=== PATIENT | female | born 1955 | race Caucasian/White ===

== ENCOUNTER 2017-01-01 14:59 | Emergency (ER) | payer OTHER ==
--- NOTE | ~2017-01-01 | CR210 ---
[facility] A Service of [facility] & [facility] RADIOLOGY TEXT RESULTS PATIENT: LC PHILIP LOCATION: [facility]FT[facility] : 59 UNIT #: [id number] AGE: [address]: Amber Ewing APRN SEX: F ORDER DR: [id number] [facility] [address] [place], [place] [address] [id number] E MR#: [id number] Acc #: [id number] NAME: LC PHILIP : 1955 SEX: F STUDY DATE/TIME: 01/01/2017 16:39 UNIT: CFTX ROOM: STUDY DESCRIPTION: CR Ribs Uni 2 View W PA Ch Lt Attending Physician: Amber Ewing A.P.R.N. Ordering Physician: [facility] Primary Care Physician: Angela Ewing M.D. MEDICAL IMAGING REPORT This report is preliminary unless electronic signature is present EXAM Left rib series 01/01/2017 HISTORY Contusion. Fall. Pain swelling in ankle foot left side rib pain began yesterday. Patient fell. AP radiograph of the chest presented with AP and oblique views of the left ribs. COMPARISON STUDIES Comparison to chest CT 05/15/2015. FINDINGS Subtle contour irregularity superolateral margin of the lateral left fifth rib seen on only 1 view and suspicious for nondisplaced left fifth rib fracture. There is a minimally-displaced left anterolateral seventh rib fracture. No other fractures are clearly seen. Visualized right ribs appear intact. Mild levoscoliosis lumbar spine centered at the L3 level. About 1 cm left lateral translocation L3 relative to L4. These changes felt secondary to moderate to severe degenerative changes in the lga-yi-wshin lumbar spine. Heart mildly enlarged. Lungs well inflated. Right lung clear. Patchy and linear densities at the left lung base probably atelectatic in nature. Left basilar pneumonia could be considered. Followup to resolution recommended. No definite pleural effusion and no pneumothorax. Surgical chain sutures at the right lung apex. The visualized bowel gas pattern is normal. Status post cholecystectomy. Dictated by... Rajan Connor M.D. THIS IS AN ELECTRONICALLY VERIFIED REPORT STS. [facility] A Service of [facility] & [facility] RADIOLOGY TEXT RESULTS PATIENT: LC PHILIP LOCATION: [facility] : 59 UNIT #: [id number] AGE: [address]: Amber Ewing APRN SEX: F ORDER DR: Rajan Connor M.D. at 01/02/2017 7:52 PM Kuldip TD: 01/01/2017 18:29 JOB #: [id number] MEDICAL IMAGING REPORT Page 1 of 1 COPY
--- NOTE | ~2017-01-01 | CR21 ---
[facility] A Service of [facility] & [facility] RADIOLOGY TEXT RESULTS PATIENT: LC PHILIP LOCATION: [facility] : 59 UNIT #: [id number] AGE: [address]: Amber Ewing APRN SEX: F ORDER DR: [id number] [facility] [address] [place], [place] [address] [id number] E MR#: [id number] Acc #: [id number] NAME: LC PHILIP : 1955 SEX: F STUDY DATE/TIME: 01/01/2017 16:38 UNIT: CFTX ROOM: STUDY DESCRIPTION: CR Ankle Min 3 Views Rt Attending Physician: Amber Ewing A.P.R.N. Ordering Physician: [facility] Primary Care Physician: Angela Ewing M.D. MEDICAL IMAGING REPORT This report is preliminary unless electronic signature is present EXAM Right ankle series 01/01/2017 HISTORY Pain swelling ankle and foot duration 2 days. FINDINGS Well corticated linear lucency through the inferior third of the medial malleolus. While there is overlying soft tissue swelling, I believe this lucency was present on prior foot series in March 2016 and may reflect sequelae of remote fracture with nonunion or accessory ossification center. Acute nondisplaced fracture felt less likely. Correlate with location of patient's pain and mechanism of injury. Remaining bony structures show no acute appearing abnormalities. There is a plantar calcaneal spur. Soft tissue swelling medial, lateral and anterior aspects of the ankle without soft tissue defect, subcutaneous air or radiodense foreign body. Dictated by... Rajan Connor M.D. THIS IS AN ELECTRONICALLY VERIFIED REPORT Rajan Connor M.D. at 01/02/2017 7:52 PM Kuldip TD: 01/01/2017 18:23 JOB #: [id number] MEDICAL IMAGING REPORT Page 1 of 1 COPY
--- NOTE | ~2017-01-01 | CR127 ---
[facility] A Service of [facility] RADIOLOGY TEXT RESULTS PATIENT: LC PHILIP LOCATION: [facility] : 59 UNIT #: [id number] AGE: [address]: Amber Ewing APRN SEX: F ORDER DR: [id number] [facility] [address] [place], [place] [address] [id number] E MR#: [id number] Acc #: [id number] NAME: LC PHILIP : 1955 SEX: F STUDY DATE/TIME: 01/01/2017 16:38 UNIT: CFTX ROOM: STUDY DESCRIPTION: CR Foot Complete Min 3 View Rt Attending Physician: Amber Ewing A.P.R.N. Ordering Physician: Ed James Gómez M.D. Primary Care Physician: Angela Ewing M.D. MEDICAL IMAGING REPORT This report is preliminary unless electronic signature is present EXAM Right foot series, 01/01/2017. HISTORY Pain and swelling in ankle and foot, 2 days duration. TECHNIQUE AP, lateral, and oblique radiographs of the right foot are presented. COMPARISON 03/18/2016 FINDINGS No acute-appearing traumatic fracture or malalignment. Degenerative changes in the interphalangeal joints. Stable appearance, orthopedic cerclage wire, medial aspect, distal phalanx, great toe, and stable appearance of orthopedic fixation wire, distal shaft and head, 5th metatarsal bone. No non-orthopedic radiodense foreign body. No soft tissue defect or subcutaneous air. Soft tissue swelling suggested, anterior aspect of the ankle and probably medial and lateral aspects of ankle, as well. Please associated ankle series for further assessment. Dictated by... Rajan Connor M.D. THIS IS AN ELECTRONICALLY VERIFIED REPORT Rajan Connor M.D. at 01/02/2017 7:52 PM MAHAMED/lauren TD: 01/01/2017 18:19 JOB #: [id number] [facility] A Service [facility] RADIOLOGY TEXT RESULTS PATIENT: LC PHILIP LOCATION: [facility] : 59 UNIT #: [id number] AGE: [address]: Amber Ewing APRN SEX: F ORDER DR: MEDICAL IMAGING REPORT Page 1 of 1 COPY
[~2017-01-01 14:59] MED LIST: ACID REDUCER 1150 MG PO; ALBUTEROL17 GM INH; ALBUTEROL20 ml INH; BENTYL20 MG PO; BREO ELLIPTA I1 EACH IH; DARVOCET-N 1001 TAB PO; HYDROCODON-ACE1 EAC7 PO; HYDROCODONE/APA1 T15 PO; LORTAB 5/500 TA1 TA1 PO; NEXIUM PO; SPIRIVA18 MCG INH; TROSPIUM CHLORI60 M1 PO; ZOFRANODT PO; ZOFRANODT SL; [UNRECOGNIZED DRUG - OTHER]; [UNRECOGNIZED DRUG - OTHER]; [UNRECOGNIZED DRUG - OTHER]; [UNRECOGNIZED DRUG - REMARK]
== END 2017-01-01 18:23 | disposition home or self-care (01) ==
LOC: CFTX 14:59 → CED 14:59 → CFTX 17:18
DX: S22.42XA Multiple fractures of ribs, left side, initial encounter for closed fracture (principal); M25.471 Effusion, right ankle; F41.9 Anxiety disorder, unspecified; K21.9 Gastro-esophageal reflux disease without esophagitis; J44.9 Chronic obstructive pulmonary disease, unspecified; F17.210 Nicotine dependence, cigarettes, uncomplicated; Z90.710 Acquired absence of both cervix and uterus; Z98.51 Tubal ligation status; Z88.0 Allergy status to penicillin; W01.0XXA Fall on same level from slipping, tripping and stumbling without subsequent striking against object, initial encounter; Y92.009 Unspecified place in unspecified non-institutional (private) residence as the place of occurrence of the external cause
CPT/HCPCS: 71101; 73610; 73630; 99284

== ENCOUNTER → 2017-04-14 | Outpatient (CLI) | payer OTHER ==
--- NOTE | ~2017-04-14 | MY29 ---
[facility] A Service [facility] RADIOLOGY TEXT RESULTS PATIENT: LC PHILIP LOCATION: [facility] : 59 UNIT #: [id number] AGE: [address]: Arianna Ewing MD SEX: F ORDER DR: [id number] [address] [place], [place] [address] [id number] O MR#: [id number] Acc #: [id number] NAME: LC PHILIP : 1955 SEX: F STUDY DATE/TIME: 04/14/2017 15:00 UNIT: [facility] ROOM: STUDY DESCRIPTION: [facility] SCREENING W/ CAD BILAT Attending Physician: Angela Ewing M.D. Referring Physician: Angela Ewing M.D. Ordering Physician: Angela Ewing M.D. Primary Care Physician: Angela Ewing M.D. MEDICAL IMAGING REPORT This report is preliminary unless electronic signature is present EXAM Bilateral digital screening mammogram with CAD HISTORY Routine screening. No current complaints. Family history of breast cancer in a cousin. COMPARISON 02/03/2014, 12/27/2013 FINDINGS MLO and CC digital views of each breast were obtained and the study was reviewed with an FDA-approved CAD device. The breasts are almost entirely fatty replaced. There is a stable 6 mm nodule in the right breast anteriorly. There has been no change. IMPRESSION No change. No evidence of malignancy. Patient's over the age of 40 are entered into a reminder system with target due date for the next mammogram. A result letter will be sent to the patient. BIRADS: 1 Negative Dictated by... Bill Dutta M.D. THIS IS AN ELECTRONICALLY VERIFIED REPORT Bill Dutta M.D. at 04/14/2017 10:09 PM FEL/to [facility] A Service [facility] RADIOLOGY TEXT RESULTS PATIENT: LC PHILIP LOCATION: [facility] : 59 UNIT #: [id number] AGE: [address]: Arianna Ewing MD SEX: F ORDER DR: TD: 04/14/2017 18:51 JOB #: [id number] MEDICAL IMAGING REPORT Page 1 of 1 COPY
== END | disposition home or self-care (01) ==
LOC: CWCC 11:45
DX: Z12.31 Encounter for screening mammogram for malignant neoplasm of breast (principal); Z80.3 Family history of malignant neoplasm of breast
CPT/HCPCS: G0202